=== PATIENT | female | born 1960 | race Caucasian/White ===

== ENCOUNTER 2019-02-17 10:47 | Emergency (ER) | payer BC ==
[2019-02-17] MEDS ORDERED: Diph,Pert(Acell),Tet Vac 0.5 ML SYR IM ONE (11:09)
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
[2019-02-17] MEDS ORDERED: ACETAMINOPHEN 500 MG TABLET PO ONE (11:31)
--- NOTE | 2019-02-18 05:58 | CT SCAN REPORT ---
EXAM: CT OF THE BRAIN WITHOUT CONTRAST HISTORY: ACUTE HEADACHE AND HEAD PRESSURE. HEAD TRAUMA POST FALL. LOSS OF CONSCIOUSNESS. TECHNIQUE: Routine noncontrast CT of the brain was obtained. Comparison: None. FINDINGS: The ventricles and subarachnoid spaces are normal in size. No area of abnormally increased or decreased attenuation is noted throughout the brain substance. No abnormal extraaxial fluid collection is seen. No acute skull abnormality. The paranasal sinuses and mastoid air cells are clear. The orbits, to the extent visualized are unremarkable. No scalp hematoma identified. IMPRESSION: NO CT EVIDENCE OF AN ACUTE INTRACRANIAL ABNORMALITY NOR SKULL FRACTURE. JOB NUMBER: [id number] [facility]
--- NOTE | 2019-02-18 06:05 | RADIOLOGY REPORT ---
EXAM: ELBOW, LEFT 3 VIEWS HISTORY: POSTERIOR ELBOW PAIN AND SWELLING/ABRASION POST FALL. TECHNIQUE: Four views of the left elbow. COMPARISON: None. ENCOUNTER: Initial. FINDINGS: There is normal bone mineralization. No convincing acute fracture, dislocation, or destructive bone lesion is seen. The articular relations are grossly maintained. No anterior nor posterior fat pad sign. There is moderate posterior soft tissue swelling. A couple of tiny calcific densities are noted in the soft tissues adjacent to the olecranon. These are nonspecific. IMPRESSION: 1. NO ACUTE FRACTURE, DISLOCATION, NOR JOINT EFFUSION. 2. MODERATE POSTERIOR SOFT TISSUE SWELLING. TINY CALCIFIC DENSITIES NOTED WITHIN THE SOFT TISSUES ADJACENT TO THE OLECRANON SEEN ON THE LATERAL VIEW, NONSPECIFIC. JOB NUMBER: [id number] [facility]
--- NOTE | 2019-02-18 06:10 | RADIOLOGY REPORT ---
EXAM: WRIST, LEFT 3 VIEWS HISTORY: LEFT WRIST PAIN ONE DAY POST FALL. TECHNIQUE: Three views of the left wrist. COMPARISON: None. ENCOUNTER: Initial. FINDINGS: There is borderline diffuse osteopenia. No definite acute fracture nor dislocation. There are osteoarthritic changes involving the lateral wrist. There are at least moderate osteoarthritic changes of the first carpometacarpal joint. There is a chronic-appearing bony protuberance arising from the lateral margin of the trapezium. No suspicious focal soft tissue abnormality. IMPRESSION: 1. NO DEFINITE ACUTE FRACTURE NOR DISLOCATION. 2. OSTEOARTHRITIC CHANGES MOST PRONOUNCED IN THE FIRST CARPOMETACARPAL JOINT WHERE THEY ARE AT LEAST MODERATE. THERE IS CHRONIC-APPEARING BONY PROTUBERANCE ARISING FROM THE LATERAL MARGIN OF THE TRAPEZIUM. JOB NUMBER: [id number] [facility]
== END 2019-02-17 12:30 | disposition home or self-care (01) ==
LOC: ER 10:47
DX: S06.9X1A Unspecified intracranial injury with loss of consciousness of 30 minutes or less, initial encounter (principal); S50.02XA Contusion of left elbow, initial encounter; S50.312A Abrasion of left elbow, initial encounter; R51 Headache; M25.532 Pain in left wrist; V00.131A Fall from skateboard, initial encounter; Y92.000 Kitchen of unspecified non-institutional (private) residence as the place of occurrence of the external cause
CPT/HCPCS: 70450; 90715; 96372; 99284